=== PATIENT | female | born 1975 | race Caucasian/White ===

== ENCOUNTER 2019-08-29 09:25 | Emergency (ER) | payer OTHER ==
[~2019-08-29] VITALS: Ht 170.2 cm; Wt 61.2 kg
[2019-08-29] MEDS ORDERED: FLEXERIL PO (10:07)
[2019-08-29] MEDS ORDERED: TRAMADOL 50 MG50 MG PO (10:07)
[2019-08-29 10:25] VITALS: BP 122/79
== END 2019-08-29 10:26 | disposition home or self-care (01) ==
LOC: M.ERS 09:25
DX: S00.83XA Contusion of other part of head, initial encounter (principal); V49.49XA Driver injured in collision with other motor vehicles in traffic accident, initial encounter; Y93.89 Activity, other specified; Y92.89 Other specified places as the place of occurrence of the external cause; Y99.8 Other external cause status